=== PATIENT | female | born 1955 | race Hispanic/Latino ===

== ENCOUNTER → 2018-10-10 | Outpatient (CLI) | payer OTHER | END | disposition home or self-care (01) | LOC: RAH 14:31 | PROVIDERS: ATTEND Internal Medicine | DX: R92.8 Other abnormal and inconclusive findings on diagnostic imaging of breast (principal); I25.2 Old myocardial infarction; Z90.12 Acquired absence of left breast and nipple; Z85.3 Personal history of malignant neoplasm of breast | CPT/HCPCS: 77065 ==